=== PATIENT | male | born 1935 | race African-American/Black ===

== ENCOUNTER 2017-04-17 15:48 | Observation (INO) | payer MEDICARE, OTHER ==
[~2017-04-17] VITALS: Ht 165.1 cm; Wt 52.2 kg
[2017-04-17 17:36] LABS: Basophils # (auto) 0 uL; Basophils % (auto) 0.3 % (0.0-2.0); Eosinophils # (auto) 0 uL; Hematocrit 40.8 % (41.0-53.0); Hemoglobin 13.4 g/dL (13.5-17.5); Lymphocytes # (auto) 0.6 uL; Lymphocytes % (auto) 5.5 % (10.0-50.0); Mean Corpuscular Hemoglobin 32.9 pg (28.0-32.0); Mean Corpuscular Hgb Conc. 32.8 g/dL (32.0-36.0); Mean Corpuscular Volume 100.5 fL (80.0-100.0); Monocytes # (auto) 1.2 uL; Monocytes % (auto) 11.3 % (0.0-12.0); Neutrophils # (auto) 8.9 uL; Neutrophils % (auto) 82.9 % (37.0-80.0); Nucleated Red Blood Cells % 0.1 %; Platelet Count (auto) 318 10^3/uL (140-450); Red Blood Cells 4.06 10^6/uL (4.5-5.90); Red Cell Distribution Width 15.9 % (11.8-14.3); White Blood Cell 10.8 10^3/uL (4.4-10.8)
[2017-04-17 17:48] LABS: Lactic Acid w/Reflex 2.8 mmol/L (0.4-2.0)
[2017-04-17 17:49] LABS: Alanine Aminotransferase 14 U/L (16-61); Albumin 3.1 g/dL (3.4-5.0); Alkaline Phosphatase 98 U/L (45-117); Anion Gap 13 (5-15); Aspartate Aminotransferase 22 U/L (15-37); BUN/Creatinine Ratio 18.5; Bilirubin, Total 0.8 mg/dL (0.2-1.0); Blood Urea Nitrogen 15 mg/dL (7-18); Calcium 8.5 mg/dL (8.5-10.1); Carbon Dioxide 23 mmol/L (21-32); Chloride 102 mmol/L (98-107); GFR African American 118 mL/min; GFR Non-African American 97 mL/min; Glucose 83 mg/dL (74-106); Magnesium 2.3 mg/dL (1.6-2.6); Potassium 4.2 mmol/L (3.5-5.1); Sodium 138 mmol/L (136-145); Total Protein 7.7 g/dL (6.4-8.2)
[2017-04-17] MEDS ORDERED: SODIUM CHLORIDE 0.9% 1,000 ML IV ONE ×2 (18:00→20:45)
[2017-04-17] MEDS ORDERED: cefTRIAXone 1GM/10ml IVPUSH 10 ML IV ONE (20:45)
[2017-04-17] MEDS ORDERED: LIDOCAINE HCL 2% TOP JELLY 5ML TOP ONE (21:15)
[2017-04-18 04:11] VITALS: BP 139/84
== END 2017-04-18 04:24 | disposition short-term general hospital (02) | DRG 194 ==
LOC: ER 15:48 → OVERFLOW 16:34 → ER 04-18 04:24
PROVIDERS: ADMIT Family Medicine; ATTEND Family Medicine
DX: J18.9 Pneumonia, unspecified organism (principal); Z43.1 Encounter for attention to gastrostomy; R53.1 Weakness; F17.210 Nicotine dependence, cigarettes, uncomplicated; I10 Essential (primary) hypertension; Z85.810 Personal history of malignant neoplasm of tongue; Z85.818 Personal history of malignant neoplasm of other sites of lip, oral cavity, and pharynx; Z82.49 Family history of ischemic heart disease and other diseases of the circulatory system
CPT/HCPCS: 36415; 71010; 80053; 83605; 83735; 84484; 85025; 87040; 93005; 96361; 96374; 99285; G0378; J7030